=== PATIENT | female | born 1955 | race Caucasian/White ===

== ENCOUNTER 2018-11-18 08:00 | Inpatient (IN) | payer OTHER ==
[~2018-11-18] VITALS: Ht 157.5 cm; Wt 134.7 kg
[2018-11-18] MEDS ORDERED: AVAPRO300 MG PO (09:43)
[2018-11-18] MEDS ORDERED: TOPROL XL25 M1 PO (09:43)
[2018-11-18] MEDS ORDERED: SINGULAIR10 MG PO (09:44)
[2018-11-18] MEDS ORDERED: PROTONIX20 MG PO (09:44)
[2018-11-18] MEDS ORDERED: ALDACTONE25 MG PO (09:44)
[2018-11-18] MEDS ORDERED: INDOCIN25 MG/5 ML PO (09:45)
[2018-11-18] MEDS ORDERED: CLONAZEPAM2 M1 PO (09:45)
[2018-11-18] MEDS ORDERED: VISTARIL50 MG PO (09:45)
[2018-11-18] MEDS ORDERED: PERCOCET 5-3251 EACH PO (09:45)
[2018-12-02] MEDS ORDERED: PERCOCET 5-3251 EACH PO (15:19)
[2018-12-02] MEDS ORDERED: DUI500 PO (15:19)
[2018-12-02] MEDS ORDERED: ELIQUIS2.5 MG PO (15:19)
== END 2018-12-02 18:41 | disposition home or self-care (01) | DRG 470 ==
LOC: SURG 11-30 05:50 → O/R 11-30 05:50 → SURH 11-30 08:00 → SURG 11-30 10:15
PROVIDERS: ADMIT Orthopaedic Surgery
PROC: 0SRC0J9 Replacement of Right Knee Joint with Synthetic Substitute, Cemented, Open Approach (ICD-10-PCS; principal; 2018-11-30 09:30)
DX: M17.11 Unilateral primary osteoarthritis, right knee (principal); M81.8 Other osteoporosis without current pathological fracture; I10 Essential (primary) hypertension; J45.998 Other asthma; E66.8 Other obesity

== ENCOUNTER 2019-05-23 09:02 | Outpatient (CLI) | payer OTHER ==
[~2019-05-23 09:02] MED LIST: ALDACTONE25 MG PO; AVAPRO300 MG PO; CLONAZEPAM2 M1 PO; DUI500 PO; ELIQUIS2.5 MG PO; INDOCIN25 MG/5 ML PO; PERCOCET 5-3251 EACH PO; PROTONIX20 MG PO; SINGULAIR10 MG PO; TOPROL XL25 M1 PO; VISTARIL50 MG PO
== END 2019-05-23 09:13 | disposition home or self-care (01) ==
LOC: NUCLEAR 09:02
DX: E04.2 Nontoxic multinodular goiter (principal)
CPT/HCPCS: 78013; A9512